=== PATIENT | male | born 1980 | race Caucasian/White ===

== ENCOUNTER 2023-07-06 14:48 | Outpatient (AMB) | payer OTHER, SELFPAY ==
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
[2023-07-06 15:00] VITALS: BP 134/82; PULSE 73; RESP 14; O2SAT 96; BMI 36.3
== END 2023-07-06 15:51 | disposition home or self-care (01) ==
PROVIDERS: PCP Physician Assistant Medical; Visit Provider Internal Medicine
DX: M54.16 Radiculopathy, lumbar region (principal)
CPT/HCPCS: 99204

== ENCOUNTER → 2023-07-06 14:48 | Outpatient (BNVA) | payer OTHER, SELFPAY | PROVIDERS: PCP Physician Assistant Medical; Visit Provider Internal Medicine ==

== ENCOUNTER 2023-08-13 14:16 | Outpatient (REF) | payer OTHER, SELFPAY ==
--- NOTE | ~2023-08-13 | XR_ITS ---
EXAMINATION: XR HIP WITH AP PELVIS, BILATERAL CLINICAL INFORMATION: Lumbar radiculopathy. COMPARISON: None available. TECHNIQUE: AP view the pelvis as well as AP and frog-leg lateral views of the right and left hip. FINDINGS: Moderate right hip joint space narrowing with marginal osteophytes. Corticated ossification adjacent to the acetabulum, likely indicating an unfused osteophyte. Severe left hip joint space narrowing with subchondral sclerosis and marginal osteophytes. Left femoral neck buttressing. No acute fracture or dislocation. No concerning lytic or blastic osseous lesion. Surgical clips within the scrotum consistent with vasectomy. XR/XR hips BERNARD min 3V IMPRESSION: Severe left and moderate right hip osteoarthritis. Left femoral neck buttressing. No acute fracture or dislocation.
--- NOTE | 2023-08-13 14:23 | EMG_ITS ---
Chief complaint: Numbness and pain left thigh. Denies symptoms below the knee. Denies numbness on foot. No footdrop. Reason for referral: Evaluate for radiculopathy left L2-3 or L3-4 Referred by: Dr. Sanchez Procedure done: Left lower extremity NCS/EMG Precautions and/or limitations: None The limb temperature was monitored continuously and remained between 32-36 degrees C during the performance of the NCS. Nerve Conduction Studies Anti Sensory Summary Table ?Stim Site NR Onset (ms) Norm Onset (ms) Peak (ms) Norm Peak (ms) O-P Amp (?V) Norm O-P Amp Site1 Site2 Delta-0 (ms) Dist (cm) Ajay (m/s) Norm Ajay (m/s) Left Sural Anti Sensory (Lat Mall) Calf ? 2.5 3.1 <4.0 9.0 >5.0 Calf Lat Mall 2.5 14.0 56 Motor Summary Table ?Stim Site NR Onset (ms) Norm Onset (ms) O-P Amp (mV) Norm O-P Amp iAmp (mV) Amp (1st) (%) Site1 Site2 Delta-0 (ms) Dist (cm) Ajay (m/s) Norm Ajay (m/s) Left Peroneal Motor (Ext Dig Brev) Ankle ? 4.8 <4.0 7.9 >2.5 9.3 100.0 Ankle Ext Dig Brev 4.8 0.0 B Fib ? 10.7 9.2 11.0 116.5 B Fib Ankle 5.9 33.0 56 >40 Poplt ? 11.6 9.4 11.2 119.0 Poplt B Fib 0.9 5.0 56 >40 Left Tibial Motor (Abd Lane Brev) Ankle ? 3.4 <5 10.6 >2.[address] Brev 3.4 0.0 Knee ? 11.8 9.4 12.5 88.7 Knee Ankle 8.4 42.0 50 >40 EMG ?Side Muscle Nerve Root Ins Act Fibs Psw Amp Dur Poly Recrt Int Pat Comment Left AbdHallucis MedPlantar S1-2 Nml Nml Nml Nml Nml 0 Nml Complete Left AntTibialis Dp Br Peron L4-5 Incr 1+ 1+ Nml Nml 0 Nml Complete Left PostTibialis Tibial L5, S1 Nml Nml Nml Nml Nml 0 Nml Complete Left MedGastroc Tibial S1-2 Nml Nml Nml Nml Nml 0 Nml Complete Left VastusMed Femoral L2-4 Incr 1+ 1+ Nml Nml 0 Nml Complete Left Peroneus Long Sup Br Peron L5-S1 Nml Nml Nml Nml Nml 0 Nml Complete Left Add Hi Obturator, Sciat L2-4 Nml Nml Nml Nml Nml 0 Nml Complete Paraspinal EMG ?Side Muscle Nerve Root Ins Act Fibs Psw Comment Left Lumbar Mid Rami Nml Nml Nml Left Lumbar Lower Rami Nml Nml Nml Left Lumbar Upper Rami Nml Nml Nml FINDINGS: Left peroneal nerve showed prolonged distal latency, normal amplitude and normal conduction velocity. All other nerves tested were within normal. Concentric needle EMG was performed in selected muscles of the left lower extremity and lumbar paraspinals. Study revealed Signs of electric abnormalities as shown in the table below. Left vastus medialis and tibialis anterior muscles showed increased insertional activity, PSWs and fibrillations. IMPRESSION: 1. This is an abnormal study. 2. There is electrodiagnostic evidence for active left L4 radiculopathy. 3. There is no electrodiagnostic evidence for tibial neuropathy, lumbosacral plexopathy, or peripheral neuropathy. Thank you for your kind referral. Lay Marshall MD, ANA Board Certified, [place] Board [employer] and Rehabilitation (ABPMR) Board Certified, [place] Board [employer] Electro[employer]ostic [employer] (ABEM) [place]OD[place] [id number] [facility]
== END 2023-08-13 14:17 | disposition home or self-care (01) ==
LOC: HO.NEURO 14:16
PROVIDERS: PCP Internal Medicine; Visit Provider Internal Medicine
DX: M54.16 Radiculopathy, lumbar region (principal)
CPT/HCPCS: 73522; 95886; 95908

== ENCOUNTER → 2023-08-13 14:23 | Outpatient (BNV) | payer OTHER, SELFPAY | PROVIDERS: PCP Internal Medicine; Visit Provider Physical Medicine & Rehabilitation | DX: M54.16 Radiculopathy, lumbar region (principal) | CPT/HCPCS: 95886; 95908 ==

== ENCOUNTER 2023-08-19 05:59 | Outpatient (REF) | payer OTHER, SELFPAY ==
--- NOTE | ~2023-08-19 | FL_ITS ---
EXAMINATION: XR FLUOROSCOPY WITH IMAGES CLINICAL INFORMATION: Radiculopathy, lumbar region. COMPARISON: None available. TECHNIQUE: Fluoroscopy Supervised By: Dr. Rachid Sanchez. Fluoroscopy Time: 0.3 minutes. Cumulative Dose: 24.9 mGy. DAP: 2.49 Gycm2. Images: 2. FINDINGS: Image demonstrates needle placement and contrast injection adjacent to 2 left lateral lumbar vertebrae FL/FL guidance in treatment room IMPRESSION: Fluoroscopy guidance for pain management procedure
== END 2023-08-19 06:00 | disposition home or self-care (01) ==
LOC: CF 05:59
PROVIDERS: Visit Provider Internal Medicine
DX: M54.16 Radiculopathy, lumbar region (principal)
CPT/HCPCS: 64483; 64484

== ENCOUNTER 2023-08-19 07:34 | Outpatient (AMB) | payer OTHER, SELFPAY ==
[2023-08-19 07:38] VITALS: BP 118/82; PULSE 85; RESP 14; O2SAT 95
--- NOTE | 2023-08-19 07:38 | A.OFFVIS_ITS ---
Intake Vital Signs 08/19/23 07:38 08/19/23 08:12 BP 118/82 114/78 Blood Pressure Location Rt brachial Rt brachial Position Sitting Sitting Respiration 14 14 Pulse 85 74 Pulse Source Pulse Oximeter Pulse Oximeter Pulse Oximetry (%) 95 96 Oxygen Delivery Method Room Air Room Air Intake Visit Reasons: Left L2-L3, L3-L4 TFESI Allergies No Known Allergies Allergy (Verified 08/19/23 07:39) HPI Left L2-L3, L3-L4 TFESI HPI Details Patient presents for scheduled procedure. Denies any recent cough, cold, infection, fever or other significant changes in medical history since last office visit. [facility] Medical History (Updated 07/06/23 @ 15:49 by Rachid Sanchez MD) Lumbar radicular pain Sciatica Obesity Physical Exam Vital Signs: Last Vital Signs Pulse 74 08/19/23 08:12 Resp 14 08/19/23 08:12 BP 114/78 08/19/23 08:12 Pulse Ox 96 08/19/23 08:12 Oxygen Delivery Method Room Air 08/19/23 08:12 Office Procedures Details: Transforaminal epidural steroid injection, Left L2/3, L3/4 After obtaining written consent, pre-procedure blood pressure and heart rate were stable and recorded in the nursing record. The patient was placed in the prone position on the fluoroscopy table. The lumbosacral area was prepped with chloraprep, allowed to dry and draped in sterile fashion. Using fluoroscopy, the skin overlying our target was anesthetized with 0.5% lidocaine. A 22 gauge 3.5 inch spinal needle was advanced to the safe triangle in the upper pole of the [side/level] foramen. No paresthesias were elicited with needle placement and aspiration was negative for blood and CSF. Correct needle position was confirmed with approximately 1 ml contrast dye (Omnipaque 300 mg/ml) injected under real-time fluoroscopy. No evidence of vascular or intrathecal uptake was seen and there was both epidural and peripheral spread of the contrast agent. 7.5 mg dexamethasone plus 1 ml containing 0.5% lidocaine was slowly injected. The needle was flushed and removed. the same procedure was repeated for the remaining levels. The skin was cleansed and a sterile bandages were applied. The patient tolerated the procedure well and no complications were encountered. Following the procedure the patient's vital signs were stable. The patient was discharged home in good condition with post-procedural instructions. Time Out: Immediately prior to the procedure, the following was verbally confirmed that there is a signed consent form and that the correct patient, planned procedure, site and side are consistent with documentation and that necessary equipment and/or blood products are available prior to the start of the case. Complications: none EBL: <5 cc 47277 - Lumbar/Sacral 69265 - Lumbar/Sacral, additional level Procedure code (CPT) selection complete Assessment & Plan Assessment & Plan (1) Lumbar radicular pain: Code(s): M54.16 - Radiculopathy, lumbar region Plan Patient is status post left L2/3, L3/4 TFESIs. Patient tolerated procedure well and was discharged home in stable condition with discharge instructions. All questions were answered. We will follow-up via telephone or in clinic to assess response to therapy. A follow-up appointment was made during today's visit. Orders: Orders FL guidance in treatment room Today M54.16 - Radiculopathy, lumbar region Coding Level of Care Code Procedure Only Diagnoses Lumbar radicular pain M54.16 CPT Codes Transforaminal Epidural Steroid Inj - TESI 3: 13546 - Lumbar/Sacral ([id number]) Transforaminal Epidural Steroid Inj - TESI 4: 67670 - Lumbar/Sacral, additional level ([id number])
[2023-08-19 08:12] VITALS: BP 114/78; PULSE 74; RESP 14; O2SAT 96
== END 2023-08-19 08:10 | disposition home or self-care (01) ==
LOC: HO.PMCPRC 07:34
PROVIDERS: PCP Internal Medicine; Visit Provider Internal Medicine
DX: M54.16 Radiculopathy, lumbar region (principal)
CPT/HCPCS: 64483; 64484

== ENCOUNTER 2023-09-11 10:38 | Outpatient (AMB) | payer OTHER, SELFPAY ==
--- NOTE | 2023-09-11 10:52 | MHC.OFFVIS ---
Intake Vital Signs 09/11/23 10:53 Height 5 ft 11 in Weight 260 lb BMI 36.3 Blood Pressure Location Lt brachial Position Sitting Respiration 14 Pulse 62 Pulse Source Pulse Oximeter Pulse Oximetry (%) 96 Oxygen Delivery Method Room Air Intake Visit Reasons: s/p Left L2-L3, L3-L4 TFESI/lvm Allergies No Known Allergies Allergy (Verified 09/11/23 10:54) Medication List - Last Reconciled 09/11/23 by Mary Roldan LPN gabapentin 300 mg PO TID HPI s/p Left L2-L3, L3-L4 TFESI/lvm HPI Details 43-year-old male who presents today to the office s/p left L2-L3, L3-L4 TFESI. The patient reports no relief following the procedure. The last injections that were done based on distribution of his based on the dermatomal distribution of his symptoms did not provide any relief. Interval history is notable for a nerve conduction study that showed active L4 radiculopathy. His dermatomal distribution is now in the medial anterior thigh up to the knee, which is somewhat consistent with L4 distribution. Past procedure: 08/19/23: Left L2/3, L3/4 TFESIs: no relief. [facility] Medical History (Updated 07/06/23 @ 15:49 by Rachid Sanchez MD) Lumbar radicular pain Sciatica Obesity Review of Systems Const All systems reviewed & are unremarkable except as noted in HPI and below Physical Exam Vital Signs: Last Vital Signs Pulse 62 09/11/23 10:53 Resp 14 09/11/23 10:53 Pulse Ox 96 09/11/23 10:53 Oxygen Delivery Method Room Air 09/11/23 10:53 BMI result Body Mass Index 36.3 General: Appears afebrile. Alert and oriented. Mood and affect appropriate. Follows and participates in conversation appropriately. Respiratory effort is unlabored. Able to transition from sit to stand unassisted. Ambulates with bilaterally normal heel strike and toe off. Results Reviewed Results Reviewed: 08/13/23: Nerve conduction study. FINDINGS: Left peroneal nerve showed prolonged distal latency, normal amplitude and normal conduction velocity. All other nerves tested were within normal. Concentric needle EMG was performed in selected muscles of the left lower extremity and lumbar paraspinals. Study revealed Signs of electric abnormalities as shown in the table below. Left vastus medialis and tibialis anterior muscles showed increased insertional activity, PSWs and fibrillations. IMPRESSION: 1. This is an abnormal study. 2. There is electrodiagnostic evidence for active left L4 radiculopathy. 3. There is no electrodiagnostic evidence for tibial neuropathy, lumbosacral plexopathy, or peripheral neuropathy. 08/13/23: XR HIP WITH AP PELVIS, BILATERAL FINDINGS: Moderate right hip joint space narrowing with marginal osteophytes. Corticated ossification adjacent to the acetabulum, likely indicating an unfused osteophyte. Severe left hip joint space narrowing with subchondral sclerosis and marginal osteophytes. Left femoral neck buttressing. No acute fracture or dislocation. No concerning lytic or blastic osseous lesion. Surgical clips within the scrotum consistent with vasectomy. IMPRESSION: Severe left and moderate right hip osteoarthritis. Left femoral neck buttressing. No acute fracture or dislocation. 11/28/22: MRI scan LUMBAR SPINE. Assessment & Plan Assessment & Plan (1) Lumbar radicular pain: Code(s): M54.16 - Radiculopathy, lumbar region Plan Given the results of the nerve conduction study and lack of relief from the L2 and L3 injection, I'm inclined to try left transforaminal epidural injection at L4 and see if that is helpful in resolving his symptoms. I informed him that even if it provides temporary relief, it will give us diagnostic evidence for the source of his symptoms, in which case, we can re interrogate the MRI and potentially consider surgical referral for an L4 foraminotomy if there is any evidence of compression along the course of L4 nerve root. Will schedule him for a left transforaminal epidural injection at L4. Discussed the risks and benefits of the procedure with the patient in detail. All questions were answered. The patient is on board with the plan. Justification for interventional therapy: ? Patient with average pain > 6/10 ? Patient has exhausted conservative therapy ? Patient unable to tolerate physical therapy due to pain Scribed for Dr. Sanchez by Pedro Jaeger, medical liaison, on 09/11/2023. I, Dr. Sanchez, have personally reviewed and agree with the information entered by the scribe. Coding Level of Care Code Est Pt Level 4 (80719) Diagnoses Lumbar radicular pain M54.16
[2023-09-11 10:53] VITALS: PULSE 62; RESP 14; O2SAT 96; BMI 36.3
== END 2023-09-11 11:12 | disposition home or self-care (01) ==
PROVIDERS: PCP Physician Assistant Medical; Visit Provider Internal Medicine
DX: M54.16 Radiculopathy, lumbar region (principal)
CPT/HCPCS: 99214

== ENCOUNTER → 2023-09-11 10:38 | Outpatient (BNVA) | payer OTHER, SELFPAY | PROVIDERS: PCP Physician Assistant Medical; Visit Provider Internal Medicine ==